=== PATIENT | male | born 1995 ===

== ENCOUNTER 2017-03-08 16:25 | Emergency (ER) | payer SELFPAY ==
[2017-03-08] MEDS ORDERED: LIDOCAINE HCL 2% (VISCOUS) 20 ML SOL MT ONE (16:40)
[2017-03-08] MEDS ORDERED: LIDOCAINE HCL 2% (VISCOUS) 20 ML SOL ONE (16:42)
[2017-03-08 16:54] VITALS: BP 137/81; PULSE 92; RESP 18; TEMP 97.5; O2SAT 100
== END 2017-03-08 17:05 | disposition home or self-care (01) | DRG 159 ==
LOC: ED 16:25
DX: K04.7 Periapical abscess without sinus (principal)
CPT/HCPCS: 99282

== ENCOUNTER 2018-10-17 09:23 | Emergency (ER) | payer SELFPAY ==
[2018-10-17 09:34] VITALS: BP 136/69; PULSE 58; RESP 16; TEMP 97.4; O2SAT 99
== END 2018-10-17 10:13 | disposition home or self-care (01) | DRG 153 ==
LOC: ED 09:23
DX: H66.91 Otitis media, unspecified, right ear (principal); H72.91 Unspecified perforation of tympanic membrane, right ear
CPT/HCPCS: 99282

== ENCOUNTER 2018-12-08 21:48 | Emergency (ER) | payer SELFPAY | END 2018-12-08 23:25 | disposition home or self-care (01) | LOC: ED 21:48 ==